=== PATIENT | female | born 1980 | race Caucasian/White ===

== ENCOUNTER → 2017-06-02 15:18 | Observation (INO) ==
--- NOTE | 2017-06-02 15:10 | Discharge Summary ---
Date of Encounter: 06/02/17 Time of Encounter: 15:10 - Discharge Diagnosis (1) 37 weeks gestation of Priority: Primary Status: Acute Comments: Patient here for labor observation. Patient had been dilated 5cm at last appointment. No cervical change after 1 hour observation. No regular contractions noted. Patient scheduled to see MFM today. - Discharge Medications Home Medications: Hydrocodone/Acetaminophen [[place] 5-325 Tablet] 1 tab PO Q4H PRN #15 tab [Rx] Ondansetron ODT [Zofran ODT] 4 mg PO Q8HR PRN #6 tab.rapdis 09/07/15 [Rx] Apixaban [Eliquis] 2.5 mg PO 1-2XD 10/05/15 [History] Penicillin VK 500 mg PO TID #21 tablet 10/05/15 [Rx] Allergies/Adverse Reactions: Allergies Sulfa (Sulfonamide Antibiotics) Allergy (Verified 09/07/15 12:58) Anaphylaxis Date of admission: 06/02/17 13:11 Primary care physician: Jocelin Villa Discharging clinician: Kennedi Kenney Anticipated date of discharge: 06/02/17 - Patient Status Disposition: Home, Self-Care Condition: Good Functional capacity at discharge: independent ambulation - Discharge Instructions Follow Up With: Kyree Horvath MD [Primary Care Provider] - Dominic Christie MD [Partnered Physician] - - Diet and Activity Activity: increase activity as tolerated Diet: regular diet 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 Time Attestation: Total time spent providing and/or coordinating discharge services: Time Spent: Less than 30 minutes Exam - Constitutional General appearance IM: A&O X 3, pleasant, answers questions appropriately (FHR 140 bpm moderate variabililty +15x15 accels no decels noted. Irregular contractions noted. SVE per 5/80/-3 per RN. No cervical change after 1 hour observation.) - VTE Reasons for not Prescribing Prophylaxis: Treatment not Indicated - Low risk for VTE
[2017-06-02 15:22] LABS: Bilirubin,Urine Negative (Negative); Blood,Urine Negative (Negative); Color,Urine Dark Yellow (Yellow); Glucose,Urine (UA) Normal (Normal); Ketones,Urine 40 mg/dL (Negative); Leukocyte Esterase,Urine Moderate (Negative); Nitrite,Urine Negative (Negative); Protein,Urine 30 mg/dL (Neg-Trace); Specific Gravity,Urine > 1.030 (1.010-1.025); Urobilinogen,Urine Normal (Normal)
[2017-06-02 15:24] LABS: Bacteria,Urine Many per hpf (None-Few); Hyaline Casts,Urine Few per lpf (None-Few); Squamous Epithelial Cell,Urine Many per lpf (None-Few); WBC,Urine 50-100 per hpf (0-3)
[2017-06-02 15:29] LABS: Clarity,Urine Hazy (Clear)
== END | disposition home or self-care (01) ==
LOC: 1NENULAB
PROVIDERS: ADMIT Obstetrics & Gynecology; ATTEND Obstetrics & Gynecology

== ENCOUNTER 2017-06-14 06:00 | Inpatient (IN) ==
[2017-06-14] MEDS ORDERED: Famotidine 20 MG/2 ML VIAL IVP PRN (07:48)
[2017-06-14] MEDS ORDERED: Naloxone 0.4 MG/ML INJ IVP PRN ×2 (07:48→09:46)
[2017-06-14] MEDS ORDERED: Metoclopramide 10 MG/2 ML VIAL IVP PRN (07:48)
--- NOTE | 2017-06-14 08:52 | OB/GYN History & Physical ---
Date of Encounter: 06/14/17 Time of Encounter: 08:49 Assessment and Plan (1) Polyhydramnios Current visit: Yes Status: Acute Nursing is having a difficult time tracing fetus, I will AROM and place FSE, if she does not go into labor, will start pitocin, FS Q 2 hrs, anticipate Qualifiers: Fetus number: single or unspecified fetus Qualified Code(s): O40.3XX0 - Polyhydramnios, third trimester, not applicable or unspecified History of Present Illness HPI: Ms. Rojas is a 36 year old female @ 39+weeks for IOL for polyhydramnios, no LOF, VB or ctxs, feels good FM, patient also has GDMA2 on Glyburide with normal sugars, she has been on Hep for h/o PE but stopped 2 days ago. Past Med Surg Social Fam HX - Past Medical History Medical history: DVT, pulmonary embolus, thyroid disease Psychiatric history: no psych history - Past Surgical History Surgical History: other - Social History Smoking Status: Current every day smoker Smokeless Tobacco Status: No Alcohol use: occasionally Drug use: none - Family History Mother Living Status: Cause of : cirrhosis Hx Family Cancer: Yes Obstetrical History - Pregnancies : 2 Medications and Allergies Glyburide 06/14/17 [History] Heparin 06/14/17 [History] Formula Tablet 06/14/17 [History] Synthroid 100 mcg PO DAILY 06/14/17 [History] 3 Allergy/AdvReac Type Severity Reaction Status Date / Time latex Allergy Hives Verified 06/14/17 07:34 Sulfa (Sulfonamide Allergy Anaphylaxis Verified 09/07/15 12:58 Antibiotics) Review of System OB All systems PM: reviewed and no additional remarkable complaints except as stated Exam - Vital Signs Vital signs: Initial Vital Signs Temp Pulse Resp BP 97.6 F 77 16 133/83 06/14/17 07:17 06/14/17 07:17 06/14/17 07:17 06/14/17 07:17 - Constitutional Constitutional: no acute distress - HEENT HEENT: PERRL - Neck Neck exam: full ROM - Lungs Respiratory exam: CTAB - Cardiovascular Cardiovascular exam: RRR - Abdomen Abdomen: Present: gravid - Extremities Extremities exam: warm - Cervix Dilation: 5 Results All other labs normal. - VTE Reasons for not Prescribing Prophylaxis: Treatment not Indicated - Low risk for VTE
[2017-06-14] MEDS: Ringers Solution, Lactated 1,000 ML IVC SCH ×3 (09:01→11:24)
[2017-06-14 09:03] LABS: Basophils % 0.2 %; Eosinophils # 0.1 K/mcL (0.0-0.6); Eosinophils % 0.7 %; Hematocrit 42.8 % (35.3-44.9); Hemoglobin 14.4 g/dL (11.5-15.4); Immature Granulocytes % 0.5 % (0-4); Lymphocytes # 2.7 K/mcL (0.6-4.6); Lymphocytes % 21.8 %; Mean Corpuscular HGB Conc 33.6 g/dL (31.6-35.5); Mean Corpuscular Hemoglobin 28.1 pg (28.0-33.3); Mean Corpuscular Volume 83.4 fL (83.0-100.0); Mean Platelet Volume 9.2 fL (9.4-12.4); Monocytes # 0.6 K/mcL (0.0-1.3); Monocytes % 4.7 %; Neutrophils # 9.1 K/mcL (1.6-8.9); Platelet Count 337 K/mcL (140-400); Red Blood Count 5.13 M/mcL (3.82-4.97); Red Cell Distribution Width 14.5 % (11.5-14.5); Segmented Neutrophils % 72.1 %
[2017-06-14 09:08] LABS: INR 0.9; Prothrombin Time 9.4 Seconds (9.4-12.1)
[2017-06-14 09:11] LABS: Activated Partial Thrombo Time 30.7 Seconds (26.0-36.0)
[2017-06-14 09:15] LABS: BUN/Creatinine Ratio 17 (6-26); Blood Urea Nitrogen 12 mg/dL (7-20); Calcium 9.3 mg/dL (8.6-10.8); Carbon Dioxide 19 mEq/L (19-29); Chloride 106 mEq/L (98-109); Glucose 84 mg/dL (70-99); Osmolality,Calculated 277 (280-300); Potassium 3.8 mEq/L (3.5-4.5); Sodium 134 mEq/L (136-145); eGFR For African Americans > 60 (> 60); eGFR For Non-African Americans > 60 (> 60)
--- NOTE | 2017-06-14 09:17 | OB Labor Progress Note ---
Date of Encounter: 06/14/17 Time of Encounter: 09:17 Labor Progress Note - Subjective Subjective: patient comfortable - Vital Signs Vital Signs: VSS - Interventions Interventions: patient AROM'ed, 5-6cm, anticipate
[2017-06-14] MEDS ORDERED: *HR* Ropivacaine/PF 0.2% 10 ML AMPUL EP ONE (09:46)
[2017-06-14] MEDS ORDERED: Ondansetron 4 MG/2 ML VIAL IVP PRN (09:46)
[2017-06-14] MEDS ORDERED: EPHEDrine 50 MG/ML VIAL IVP PRN (09:46)
[2017-06-14] MEDS ORDERED: Bupivacaine-MPF 0.25% 10 ML VIAL EP ONE (09:46)
[2017-06-14] MEDS ORDERED: *HR* FentaNYL (PF) 100 MCG/2 ML VIAL EP ONE (09:46)
--- NOTE | 2017-06-14 09:54 | Anesthesia Evaluation PreOp ---
Date of Encounter: 06/14/17 Time of Encounter: 09:52 - Past History Planned Operation: MARYBETH Pulmonary History: Other (hx PE 2yrs ago, SQ) MEDICINE TECHNOLOGIST History: Denies Any Significant HX Other Medical History: Diabetes Type II Alcohol Use: occasionally Drug use: none Medications and Allergies Glyburide 06/14/17 [History] Heparin 06/14/17 [History] Formula Tablet 06/14/17 [History] Synthroid 100 mcg PO DAILY 06/14/17 [History] 3 Allergy/AdvReac Type Severity Reaction Status Date / Time latex Allergy Hives Verified 06/14/17 07:34 Sulfa (Sulfonamide Allergy Anaphylaxis Verified 09/07/15 12:58 Antibiotics) Anesthesia Results - Labs 06/14/17 08:56 06/14/17 08:56
[2017-06-14] MEDS ORDERED: Epidural Premix (fent/bupiv) 110 ML EP SCH (10:00)
[2017-06-14] MEDS ORDERED: Bupivacaine-MPF 0.25% 10 ML VIAL ONE (10:36)
[2017-06-14] MEDS ORDERED: Epidural Premix (fent/bupiv) 110 ML EP ONE ×2 (10:36→17:11)
[2017-06-14] MEDS ORDERED: *HR* FentaNYL (PF) 100 MCG/2 ML VIAL ONE (10:36)
--- NOTE | 2017-06-14 11:11 | Anesthesia Procedures ---
Date of Encounter: 06/14/17 Time of Encounter: 10:06 Procedures: Anesthesia - Epidural/Spinal Patient ID/Chart reviewed: Yes Patient examined: Yes OB Eval: Gestational age: 39 OB Eval: : 2 OB Eval: Hx Para: 1 OB Eval: Dilated at (cm): 5 OB Eval: Contractions: Non-stressed pattern Consent Obtained: Yes Supplemental Oxygen: None/Room Air Site Prep: Aseptic Technique, Sterile prep and drape, Povidone-Iodine 1% Patient position: upright Local Anesthetic: Lidocaine 1% Amount of Local Anesthetic used: 3 Touhy Needle Gauge: 18 Touhy Needle Depth (cm): 7 Catheter Depth at Skin (cm): 15 Test Dose (1.5% Lido + Epi): Volume given (mls): 3 Test Dose Result: Negative Loading Dose: 0.25% Marcaine (mls): 10 Loading Dose: Fentanyl (mcg): 100 Loading Dose Administered: Thru Catheter Infusion Med: 0.125% Bupivacaine w/ 2 mcg/ml Fentanyl Infusion Rate (mls/hr): [address]: Tegaderm, Tape Interspace Used: L4-L5 Loss of Resistance (DAVION): Yes Blood: No CSF: No Paresthesia: No Procedure: MARYBETH placed 1st pass without any immediate noted complications. PT,PPT, INR checked and within normal limits prior to epidural placement. OFF HEPARIN SINCE WEDNESDAY. Vitals + FHT's: 1006 bp 137/78 p 101 R 18 1029 BP 138/76 P 89 R 16 FHT 130s
[2017-06-14] MEDS ORDERED: Oxytocin 20 units/ LR 1000 mL 20 UNIT/1,000 ML BAG IVC ONE (11:53)
[2017-06-14] MEDS ORDERED: Oxytocin 20 units/ LR 1000 mL 20 UNIT/1,000 ML BAG IVC SCH ×2 (12:00→19:57)
--- NOTE | 2017-06-14 16:30 | OB Labor Progress Note ---
Date of Encounter: 06/14/17 Time of Encounter: 16:28 Labor Progress Note - Subjective Subjective: Pt resting comfortable in bed with epidural - Vital Signs Vital Signs: VSS - Cervix Cervix: Complete -1 - Heart Tones Heart Tones: 120/moderate/early, variable and late decelerations - Outlook Outlook: unable to determine - Interventions Interventions: IUPC placed for contraction and decel evaluation. tracing reviewed with Dr. Christie by RN - Plan Plan: Continue current management. Frequent repostioning to rotate head Anticipate
[2017-06-14] MEDS ORDERED: *HR* Enoxaparin 60 MG/0.6 ML SYRINGE SQ ONE ×2 (19:21→22:30)
[2017-06-14] MEDS ORDERED: Ibuprofen 600 MG TABLET PO PRN (19:57)
[2017-06-14] MEDS ORDERED: Benzocaine/Menthol 56 GM AEROSOL SPRAY TP PRN (19:57)
[2017-06-14] MEDS ORDERED: Lanolin 7 G OINT...G. TP PRN (19:57)
[2017-06-14] MEDS: Acetaminophen 325 MG TABLET PO PRN (21:08)
--- NOTE | 2017-06-14 21:26 | OB/GYN Procedure Note ---
Delivery - Delivery Date: 06/14/17 Provider: Dominic Christie Intrapartum events: none, polyhydramnios Delivery induction: AROM Delivery augmentation: rupture of membranes, pitocin Delivery monitor: internal FHT Anesthesia: epidural Estimated Blood Loss: 100 - Infant (s) A Infant Delivery Date: 06/14/17 Infant Delivery Time: 17:26 Presentation: vertex Position: OA Gender: Female Viability: Viable Weight Gram: 3.43 kg at 1 minute: 8 at 5 mins: 9 Shoulder Dystocia: not encountered Placenta: spontaneous Cord: nuchal cord - Repair Episiotomy: none Laceration Description: Labial, Superficial - Complications Delivery complications: none - Disposition Mom disposition: stable in LDR [place] disposition: stable in LDR - Comments Comments: Adeline is a 36 y/o now who delivered a viable female @ 1726 hrs. Infant was delivered JHOAN, nuchal cord x 2, placenta delivered 1733hrs, EBL 100, APGARs 8/9, infant weight 3430g, hemostatic periurethral lacreation noted. Mother and infant doing well.
[2017-06-15] MEDS: Acetaminophen 325 MG TABLET PO PRN ×2 (05:39→12:50)
[2017-06-15 07:16] LABS: Basophils % 0.2 %; Eosinophils # 0.1 K/mcL (0.0-0.6); Eosinophils % 1.2 %; Hematocrit 34.7 % (35.3-44.9); Lymphocytes # 2.5 K/mcL (0.6-4.6); Lymphocytes % 20.8 %; Mean Corpuscular HGB Conc 34.3 g/dL (31.6-35.5); Mean Corpuscular Hemoglobin 28.5 pg (28.0-33.3); Mean Platelet Volume 9.4 fL (9.4-12.4); Monocytes # 0.7 K/mcL (0.0-1.3); Monocytes % 5.6 %; Neutrophils # 8.5 K/mcL (1.6-8.9); Platelet Count 253 K/mcL (140-400); Red Blood Count 4.18 M/mcL (3.82-4.97); Red Cell Distribution Width 14.7 % (11.5-14.5); Segmented Neutrophils % 71.2 %
[2017-06-15 07:22] LABS: Hemoglobin 11.9 g/dL (11.5-15.4)
--- NOTE | 2017-06-15 08:53 | Discharge Summary ---
Date of Encounter: 06/15/17 Time of Encounter: 08:51 - Discharge Diagnosis (1) Vaginal delivery Priority: Primary Status: Acute Comments: Patient doing well s/p vaginal delivery day 1 Pain is well controlled with tylenol; patient declines ibuprofen Lochia is light and without clots Tolerating regular diet VSS Patient is bottle feeding Discharge home with baby this evening Follow up with Dr Christie in office in 6 weeks. 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 Recommended continuing Lovenox daily until 6 weeks . Will Rx Lovenox for discharge. - Discharge Medications Prescriptions: Enoxaparin [Lovenox] 60 mg SQ DAILY #30 syr Home Medications: Formula Tablet 06/14/17 [History] Acetaminophen [Tylenol] 650 mg PO Q6HR PRN #0 tab 06/15/17 [Rx] Benzocaine/Menthol [place] [Dermoplast [place]] 1 appl TP QID PRN aerosol 06/15/17 [Rx] Docusate [Colace] 100 mg PO BID 06/15/17 [Rx] Enoxaparin [Lovenox] 60 mg SQ DAILY #30 syr 06/15/17 [Rx] Ibuprofen [Motrin] 600 mg PO Q6HR PRN #0 tab 06/15/17 [Rx] Lanolin [Lansinoh] 1 appl TP QID PRN 06/15/17 [Rx] Levothyroxine [Synthroid] 100 mcg PO 0630 tab 06/15/17 [Rx] Allergies/Adverse Reactions: 3 Allergy/AdvReac Type Severity Reaction Status Date / Time latex Allergy Hives Verified 06/14/17 07:34 Sulfa (Sulfonamide Allergy Anaphylaxis Verified 09/07/15 12:58 Antibiotics) Data Procedures and tests throughout hospitalization: Laboratory Tests 06/14/17 06/14/17 06/14/17 08:56 08:56 08:56 WBC 12.6 H RBC 5.13 H Hgb 14.4 Hct 42.8 MCV 83.4 MCH 28.1 MCHC 33.6 RDW 14.5 Plt Count 337 MPV 9.2 L Immature Gran % 0.5 Seg Neutrophils % 72.1 Lymphocytes % 21.8 Monocytes % 4.7 Eosinophils % 0.7 Basophils % 0.2 Neutrophils # 9.1 H Lymphocytes # 2.7 Monocytes # 0.6 Eosinophils # 0.1 Basophils # 0.0 PT 9.4 INR 0.9 APTT 30.7 Sodium 134 L Potassium 3.8 Chloride 106 Carbon Dioxide 19 BUN 12 Creatinine 0.70 Est GFR ( Amer) > 60 Est GFR (Non-Af Amer) > 60 BUN/Creatinine Ratio 17 Glucose 84 POC Glucose Calculated Osmolality 277 L Calcium 9.3 06/14/17 06/14/17 06/15/17 11:36 13:43 07:02 WBC 11.9 H RBC 4.18 Hgb 11.9 D Hct 34.7 L MCV 83.0 MCH 28.5 MCHC 34.3 RDW 14.7 H Plt Count 253 MPV 9.4 Immature Gran % 1.0 Seg Neutrophils % 71.2 Lymphocytes % 20.8 Monocytes % 5.6 Eosinophils % 1.2 Basophils % 0.2 Neutrophils # 8.5 Lymphocytes # 2.5 Monocytes # 0.7 Eosinophils # 0.1 Basophils # 0.0 PT INR APTT Sodium Potassium Chloride Carbon Dioxide BUN Creatinine Est GFR ( Amer) Est GFR (Non-Af Amer) BUN/Creatinine Ratio Glucose POC Glucose 83 82 Calculated Osmolality Calcium Labs on day of discharge: Labs from last 24 hours 06/15/17 06/14/17 06/14/17 07:02 13:43 11:36 WBC 11.9 H RBC 4.18 Hgb 11.9 D Hct 34.7 L MCV 83.0 MCH 28.5 MCHC 34.3 RDW 14.7 H Plt Count 253 MPV 9.4 Immature Gran % 1.0 Seg Neutrophils % 71.2 Lymphocytes % 20.8 Monocytes % 5.6 Eosinophils % 1.2 Basophils % 0.2 Neutrophils # 8.5 Lymphocytes # 2.5 Monocytes # 0.7 Eosinophils # 0.1 Basophils # 0.0 PT INR APTT Sodium Potassium Chloride Carbon Dioxide BUN Creatinine Est GFR ( Amer) Est GFR (Non-Af Amer) BUN/Creatinine Ratio Glucose POC Glucose 82 83 Calculated Osmolality Calcium 06/14/17 06/14/17 06/14/17 08:56 08:56 08:56 WBC 12.6 H RBC 5.13 H Hgb 14.4 Hct 42.8 MCV 83.4 MCH 28.1 MCHC 33.6 RDW 14.5 Plt Count 337 MPV 9.2 L Immature Gran % 0.5 Seg Neutrophils % 72.1 Lymphocytes % 21.8 Monocytes % 4.7 Eosinophils % 0.7 Basophils % 0.2 Neutrophils # 9.1 H Lymphocytes # 2.7 Monocytes # 0.6 Eosinophils # 0.1 Basophils # 0.0 PT 9.4 INR 0.9 APTT 30.7 Sodium 134 L Potassium 3.8 Chloride 106 Carbon Dioxide 19 BUN 12 Creatinine 0.70 Est GFR ( Amer) > 60 Est GFR (Non-Af Amer) > 60 BUN/Creatinine Ratio 17 Glucose 84 POC Glucose Calculated Osmolality 277 L Calcium 9.3 Date of admission: 06/14/17 06:44 Primary care physician: Jocelin Villa Consults: 06/14/17 19:57 Consult to General Practice [CONS] Routine Comment: Vaginal delivery, consult needed Discharging clinician: Alie Owens Anticipated date of discharge: 06/15/17 - Patient Status Disposition: Home, Self-Care Condition: Good Functional capacity at discharge: independent ambulation Overall status at discharge: patient is progressing back to baseline - Discharge Instructions Follow Up With: Kyree Horvath MD [Primary Care Provider] - Dominic Christie MD [Partnered Physician] - - Diet and Activity Activity: increase activity as tolerated Diet: regular diet Hospital Course Reason for admission: induction of labor Delivery: Episiotomy: none Laceration: other (labial) complications: none Discharge diagnosis: IUP at term delivered [place] baby: female Time Attestation: Total time spent providing and/or coordinating discharge services: Time Spent: Less than 30 minutes Exam - Constitutional Vitals: Temp Pulse Resp BP Pulse Ox 98.3 F 87 18 111/74 97 06/15/17 07:56 06/15/17 07:56 06/15/17 07:56 06/15/17 07:56 06/15/17 07:56 General appearance IM: cooperative, A&O X 3 - Respiratory Respiratory exam: Present: CTAB - Cardiovascular Cardiovascular exam IM: Present: RRR, +S1, +S2 - GI/Abdominal GI/Abdominal exam IM: normal bowel sounds, soft - Uterine Tone: Firm Uterus Position: At Umbilicus, Midline - Extremities Exam Extremities exam IM: Present: normal capillary refill, normal inspection, radial pulses palpable and symmetrical - Neurological Exam Neurological exam: alert, oriented X3, reflexes normal
[2017-06-15] MEDS ORDERED: Prenatal Vit/FA 1 EACH TABLET PO SCH (09:00)
[2017-06-15 16:07] VITALS: BP 138/85
== END 2017-06-15 16:42 | disposition home or self-care (01) | DRG 775 ==
LOC: 1NENULAB 06:44 → 1NENUOBS 19:56
PROVIDERS: ADMIT Student in an Organized Health Care Education/Training Program; ATTEND Student in an Organized Health Care Education/Training Program